=== PATIENT | male | born 1945 | race Hispanic/Latino ===

== ENCOUNTER → 2023-07-08 | Outpatient (CLI) | payer OTHER, MEDICARE | END | disposition home or self-care (01) | LOC: RAH 12:54 | DX: M47.812 Spondylosis without myelopathy or radiculopathy, cervical region (principal); M25.78 Osteophyte, vertebrae; M54.2 Cervicalgia | CPT/HCPCS: 72040 ==

== ENCOUNTER 2023-07-28 13:50 | Emergency (ER) | payer OTHER, MEDICARE ==
[~2023-07-28] VITALS: Ht 165.1 cm; Wt 81.6 kg
[2023-07-28 13:52] VITALS: BP 122/55; PULSE 55; RESP 16
[2023-07-28] MEDS: ACETAMINOPHEN WITH CODEINE 1 TAB TAB PO ONE (14:23)
== END 2023-07-28 14:59 | disposition home or self-care (01) ==
LOC: EDH 13:50
DX: G89.29 Other chronic pain (principal); H92.01 Otalgia, right ear
CPT/HCPCS: 99282

== ENCOUNTER → 2023-11-19 | Outpatient (CLI) | payer OTHER, MEDICARE | END | disposition home or self-care (01) | LOC: RAH 07:47 | PROVIDERS: ATTEND Internal Medicine | DX: I70.0 Atherosclerosis of aorta (principal); Z87.891 Personal history of nicotine dependence | CPT/HCPCS: 76775 ==

== ENCOUNTER 2024-04-17 14:03 | Emergency (ER) | payer OTHER, MEDICARE ==
[~2024-04-17] VITALS: Ht 172.7 cm; Wt 72.6 kg
--- NOTE | 2024-04-17 14:34 | ERN ---
General Chief Complaint: Low Back Pain/Injury Stated Complaint: MECHANICAL FALL Source: patient, family History of Present Illness Initial Comments PATIENT IS AN 78-YEAR-OLD MALE COMING IN TO BE EVALUATED FOR LOWER BACK PAIN. PATIENT STATES THAT TWO NIGHTS AGO WHILE GETTING UP TO GO TO THE [place] AND HE PUT ON HIS SLIPPERS NUMBNESS STEPPED AND FELL BACK HITTING HIMSELF IN THE LOWER BACK REGION WITH NIGHTS THEN. HE STATES HE HAS BEEN HAVING BACK PAIN SINCE THEN. PATIENT IS ABLE TO AMBULATE BUT DOES HAVE LOWER BACK PAIN. A NEUROPATHY PRESENT. Allergies: Coded Allergies: No Known Allergies (Unverified Allergy, Unknown, 07/28/23) Past Medical History Past Medical History: Diabetes-Type II, High Cholesterol, Hypertension Past Surgical History: Appendectomy ROS Dictation CONSTITUTIONAL: NO CHILLS, NO FEVER, NO WEAKNESS, NO DIAPHORESIS, NO MALAISE. HEAD/FACE: NO SIGNS OF TRAUMA. EENT: NO EYE PAIN, NO BLURRED VISION, NO TEARING, NO DOUBLE VISION, NO EAR PAIN, NO EAR DISCHARGE, NO NOSE PAIN, NO NASAL CONGESTION, NO THROAT PAIN, NO THROAT SWELLING, NO MOUTH PAIN. RESPIRATORY: NO COUGH, NO ORTHOPNEA, NO SOB, NO STRIDOR, NO WHEEZING. CARDIOVASCULAR: NO CHEST PAIN, NO EDEMA, NO PALPITATIONS, NO SYNCOPE. GASTROINTESTINAL/ABDOMINAL: NO ABDOMINAL PAIN, NO CONSTIPATION, NO DIARRHEA, NO NAUSEA, NO VOMITING. GENITOURINARY: NO ABNORMAL DISCHARGE, NO DYSURIA, NO FREQUENT URINATION, NO HEMATURIA. NO COMPLAINTS OF PAIN IN THE GENITALS. MUSCULOSKELETAL: BACK PAIN, NO GOUT, NO JOINT PAIN, NO JOINT SWELLING, MUSCLE PAIN, MUSCLE STIFFNESS, NO NECK PAIN. INTEGUMENTARY: NO CHANGE IN COLOR, NO CHANGE IN HAIR/NAILS, NO DRYNESS, NO LESION, NO LUMPS, NO RASH. NEUROLOGICAL/PSYCH: NO ANXIETY, NOT DEPRESSED, NO EMOTIONAL PROBLEM, NO HEADACHE, NO NUMBNESS, NO PRE-EXISTING DEFICIT, NO HISTORY OF SEIZURES, NO TREMORS, NO WEAKNESS. HEMATOLOGIC/LYMPHATIC: NOT ANEMIC, NO HISTORY OF BLOOD CLOTS, NO APPARENT BLEEDING, NO BRUISING, GLANDS NOT SWOLLEN. ALL SYSTEMS NEGATIVE, EXCEPT NOTED. Physical Exam Physical Exam Dictation VITAL SIGNS: REVIEWED. GENERAL APPEARANCE: ALERT, ORIENTED X3, NO ACUTE DISTRESS, OBESE. HEAD AND FACE: NON-TRAUMATIC. EYES: PERRL, PINK CONJUNCTIVAS, EYELID NO TRAUMA, ANTERIOR CHAMBER CLEAR. EARS: PINNAS INTACT AND NO SIGNS OF TRAUMA OR ERYTHEMA. EAR CANALS CLEAR AND NO DISCHARGE. TMS NO ERYTHEMA. NOSE: NO DISCHARGE, NO BLEEDING. OROPHARYNX: MOUTH NORMAL, TEETH NO CARIES, TONGUE PINK. PHARYNX CLEAR, NO ERYTHEMA. TONSILS NO EXUDATES, NO ABSCESSES NOTED. MUCOUS MEMBRANE MOIST. NECK: SUPPLE, NON-TENDER, NO THYROMEGALY, NO MASSES, NO JVD, NO BRUITS. BREAST: DEFERRED. CHEST: NO TENDERNESS, NO CREPITUS, NO PARADOXICAL MOVEMENT, NO RETRACTIONS. LUNGS: CLEAR, WELL-VENTILATED, SYMMETRIC, NO RALES, NO WHEEZING, NO RHONCHI, NO STRIDOR, GOOD BREATH SOUNDS BILATERALLY. HEART: REGULAR RATE, REGULAR RHYTHM, NO MURMUR, NO GALLOPS. VASCULAR: NO PERIPHERAL EDEMA. ABDOMEN: SOFT, POSITIVE BOWEL SOUNDS, NONDISTENDED, NO GUARDING, NONTENDER, NO REBOUND, NO MASSES NO HEPATOMEGALY, NO SPLENOMEGALY, NO OH'S SIGN, NO HERNIAS. RECTAL: DEFERRED. GENITAL: DEFERRED. NEUROLOGICAL: NORMAL SPEECH, GROSS MOTOR FUNCTION INTACT, GROSS SENSORY FUNCTION INTACT. MUSCULOSKELETAL: NECK NONTENDER, FULL RANGE OF MOTION, SUPERVISOR SHRIMP POND, FULL RANGE OF MOTION. EXTREMITIES: NONTENDER, FULL RANGE OF MOTION. SKIN: COLOR PINK, DRY, NO TURGOR, NO RASH, NO LACERATIONS, NO ABRASIONS, NO CONTUSIONS. LYMPHATICS: DEFERRED. Results Laboratory and Microbiology Labs Reviewed?: Yes EKG/XRAY/US/CT/MRI X-RAY Comment [place] [address] [place] [address] [id number] IMAGING REPORT Signed PATIENT: KEVAN HATCH MR#: [id number] : 1945 SEX: M AGE: 78 LOCATION: ED ORDER 28 STATUS: REG ER REPORT#: [id number] SERVICE 27 REASON: FALL ORDERING PHYSICIAN: MARIEL GARIBAY MD PROCEDURE: LUMB 4VWS - LUMBAR SPINE 4+VWS Exam Type: LUMBAR SPINE 4+VWS Clinical Information: FALL Comparison: None Findings: Exam of the lumbosacral spine demonstrates no evidence of fracture or subluxation. There are moderate spondylitic changes. The facet joints show moderate degenerative changes. The alignment of the spine is normal. The disc spaces are intact. Bone mineralization is normal. Impression: Spondylitic changes and degenerative changes of the apophyseal joints as noted. DICTATED BY: MELY KAY MD DATE: 04/17/24 1558 ELECTRONICALLY SIGNED BY: MELY KAY MD DATE: 04/17/24 1601 [facility] MDM: DIFFERENTIAL DIAGNOSIS: FALL, LUMBAR STRAIN, CHRONIC BACK PAIN PATIENT IS A AN 78-YEAR-OLD MALE COMING IN TO BE EVALUATED FOR BACK PAIN. HE STATES HE FELL DOWN HIT HIMSELF IN THE BACK. X-RAY DID NOT NOT DISCLOSE ACUTE FINDINGS CHRONIC CHANGES THAT ARE PRESENT. PATIENT WILL BE DISCHARGED IN STABLE CONDITION WITH A DIAGNOSIS OF LUMBAR STRAIN, LUMBAR CONTUSION. ED Course Orders Procedure Category Date Status Time Orphenadrine Citrate PHA 04/17/24 Complete (Norflex) 14:30 Ketorolac PHA 04/17/24 Complete Tromethamine 15mg/Ml 14:30 Lumbar Spine 4+Vws RAD 04/17/24 Resulted 14:28 Current Medications Medications (Trade) Dose Ordered Sig/Khanh Route PRN Reason Start Time Stop Time Status Last Admin Dose Admin Ketorolac Tromethamine (toRADol) 15 mg ONCE ONCE IM 04/17/24 14:30 04/17/24 14:31 DC 04/17/24 15:55 Orphenadrine Citrate (Norflex) 60 mg ONCE ONCE IM 04/17/24 14:30 04/17/24 14:31 DC 04/17/24 15:55 Vital Signs Date Time Temp Pulse Resp B/P (MAP) Pulse Ox O2 Delivery O2 Flow Rate FiO2 04/17/24 14:25 98.2 61 16 165/120 95 Room Air 0 DX & DISP Disposition: Discharge Departure Impression: Primary Impression: Lumbar strain Condition: Stable Scripts Methocarbamol (Robaxin) 750 Mg Tab 1 TAB PO BID for 7 Days, #14 TAB 0 Refills Prov: MARIEL GARIBAY MD 04/17/24 Diclofenac Sodium (Voltaren Arthritis Pain) 1 % Gel..gram. 4 GM TP BID for 14 Days, #1 TUBE Prov: MARIEL GARIBAY MD 04/17/24 Additional Instructions: FOLLOW-UP WITH PRIMARY CARE PROVIDER IN 1 TO 2 DAYS. TAKE MEDICATIONS DIRECTED HERE IN THE EMERGENCY ROOM. OKAY TO CONTINUE HOME MEDICATIONS UNLESS OTHERWISE DISCUSSED DURING YOUR VISIT IN THE EMERGENCY ROOM TODAY. RETURN TO YOUR NEAREST EMERGENCY ROOM IF SYMPTOMS WORSEN OR IF THERE IS NO IMPROVEMENT. CALL 911 IF YOU NEED IMMEDIATE ASSISTANCE. TAKE TYLENOL [id number] NEEDED AND IF NO CONTRAINDICATIONS ARE PRESENT. INCREASE ORAL HYDRATION. A WOUND CULTURE OR URINE CULTURE WAS ORDERED HERE IN THE EMERGENCY ROOM DEPARTMENT PLEASE FOLLOW-UP WITH PRIMARY CARE PROVIDER AND ADVISE THEM TO GET REPEAT PORTS FROM OUR FACILITY. IF YOU HAD ANY MISHA WRAP/SPLINTS THAT WERE APPLIED HERE, PLEASE DO NOT REMOVE THEM UNTIL YOU SEE YOUR PRIMARY CARE OR SPECIALTY. REFERRALS: Referrals: PAUL BOONE MD (PCP) COURTNEY ROGER MD Time of Disposition: 16:08 MARIEL GARIBAY MD Apr 17, 2024 14:34
[2024-04-17] MEDS: ketOROlac 15MG/ML VIAL (15MG/ML) IM ONE (15:55)
[2024-04-17] MEDS: ORPHENADRINE 60MG/2ML IM ONE (15:55)
--- NOTE | 2024-04-17 16:01 | HMCIMG ---
Exam Type: LUMBAR SPINE 4+VWS Clinical Information: FALL Comparison: None Findings: Exam of the lumbosacral spine demonstrates no evidence of fracture or subluxation. There are moderate spondylitic changes. The facet joints show moderate degenerative changes. The alignment of the spine is normal. The disc spaces are intact. Bone mineralization is normal. Impression: Spondylitic changes and degenerative changes of the apophyseal joints as noted.
[2024-04-17] MEDS ORDERED: METH-662 PO (16:09)
[2024-04-17] MEDS ORDERED: DICL20GE TP (16:09)
[2024-04-17 16:34] VITALS: BP 148/94; PULSE 65; RESP 18; TEMP 98.2; O2SAT 96
== END 2024-04-17 16:39 | disposition home or self-care (01) ==
LOC: EDH 14:03
DX: S39.012A Strain of muscle, fascia and tendon of lower back, initial encounter (principal); E11.9 Type 2 diabetes mellitus without complications; E78.00 Pure hypercholesterolemia, unspecified; I10 Essential (primary) hypertension; E11.40 Type 2 diabetes mellitus with diabetic neuropathy, unspecified; Z90.49 Acquired absence of other specified parts of digestive tract; W18.39XA Other fall on same level, initial encounter; Y93.89 Activity, other specified; Y92.89 Other specified places as the place of occurrence of the external cause; Y99.8 Other external cause status
CPT/HCPCS: 99284; 72110; 96372 ×2; J1885; J2360